=== PATIENT | male | born 1935 | race Caucasian/White ===

== ENCOUNTER 2020-01-06 05:44 | Day surgery (SDC) | payer MEDICARE ==
[~2020-01-06] VITALS: Ht 167.6 cm; Wt 86.2 kg
[~2020-01-06 05:44] MED LIST: ACET-2743 PO; ASPI-555 PO; ATOR40TA69 PO; CARV25TA PO; CETI10CA5 PO; GLUC-268 PO; HYDR-3894 PO; L.AC1CAP6 PO; LEVO75TA10 PO; LUTE1CAP5 PO; MV-M1TAB55 PO; OMEG-135 PO; POTA99TA21 PO; PYRI PO; PYRI60TA2 PO; RANI-662 PO; SOLI5 PO; VITA1CAP PO; XALA2.5OS OU; magnesium PO
[2020-01-06] MEDS ORDERED: SODIUM CHLORIDE 0.9% 1000ML 1,000 ML IV ONE (06:17)
[2020-01-06] MEDS ORDERED: PROPOFOL 10 MG/ML 20ML VIAL IV ONE ×2 (06:37)
[2020-01-06] MEDS ORDERED: LIDOCAINE HCL 1% 20 ML VIAL ONE (06:37)
[2020-01-06] MEDS ORDERED: GLYCOPYRROLATE 0.2 MG/ML 5 ML VIAL ONE (06:38)
[2020-01-06 06:44] VITALS: BP 145/84
[2020-01-06 07:55] VITALS: BP 118/64
[2020-01-06 08:04] VITALS: BP 119/54
[2020-01-06 08:20] VITALS: BP 142/71
== END 2020-01-06 08:25 | disposition home or self-care (01) ==
LOC: DAH 05:44 → ENDO 05:44
PROVIDERS: ATTEND Internal Medicine Gastroenterology
DX: K52.9 Noninfective gastroenteritis and colitis, unspecified (principal); K57.30 Diverticulosis of large intestine without perforation or abscess without bleeding; I10 Essential (primary) hypertension; G70.00 Myasthenia gravis without (acute) exacerbation; E78.5 Hyperlipidemia, unspecified; Z79.82 Long term (current) use of aspirin; Z79.899 Other long term (current) drug therapy; E03.9 Hypothyroidism, unspecified; M19.90 Unspecified osteoarthritis, unspecified site; Z85.46 Personal history of malignant neoplasm of prostate; Z90.89 Acquired absence of other organs; Z98.890 Other specified postprocedural states; Z90.79 Acquired absence of other genital organ(s)
CPT/HCPCS: 45380; A4215; A4221; A4222; A4223; A4606; A4615; A4663; J2704 ×2; J3490; J7030

== ENCOUNTER → 2021-03-14 | Outpatient (CLI) | payer MEDICARE ==
[~2021-03-14] MED LIST changes: -ASPI-555 PO; +ASPI-556 PO; -HYDR-3894 PO; +HYDR-4419 PO
== END | disposition home or self-care (01) ==
LOC: RAH 14:09
PROVIDERS: ATTEND Psychiatry & Neurology Neurology
DX: R41.3 Other amnesia (principal); G31.9 Degenerative disease of nervous system, unspecified
CPT/HCPCS: 70450

== ENCOUNTER → 2023-05-29 | Outpatient (CLI) | payer MEDICARE ==
[~2023-05-29] MED LIST changes: +IOHEXOL-350 75 ML VIAL IV ONE; -POTA99TA21 PO; +POTA99TA26 PO
== END | disposition home or self-care (01) ==
LOC: RAH 09:57
PROVIDERS: ATTEND Family Medicine
DX: M79.651 Pain in right thigh (principal); R79.89 Other specified abnormal findings of blood chemistry
CPT/HCPCS: 93971; Q9967

== ENCOUNTER → 2023-06-01 | Outpatient (CLI) | payer MEDICARE | END | disposition home or self-care (01) | LOC: RAH 11:10 | PROVIDERS: ATTEND Family Medicine | DX: R79.89 Other specified abnormal findings of blood chemistry (principal) | CPT/HCPCS: 71270; Q9967 ==

== ENCOUNTER → 2024-01-07 | Outpatient (CLI) | payer MEDICARE ==
[~2024-01-07] MED LIST changes: -IOHEXOL-350 75 ML VIAL IV ONE
== END | disposition home or self-care (01) ==
LOC: RAH 10:39
PROVIDERS: ATTEND Psychiatry & Neurology Neurology
DX: G31.89 Other specified degenerative diseases of nervous system (principal); R68.89 Other general symptoms and signs
CPT/HCPCS: 70450

== ENCOUNTER 2025-02-24 05:13 | Emergency (ER) | payer MEDICARE ==
[~2025-02-24] VITALS: Ht 160 cm; Wt 77.1 kg
[2025-02-24 05:24] VITALS: BP 135/69; PULSE 56; RESP 22; TEMP 98.5; O2SAT 96
--- NOTE | 2025-02-24 05:35 | ERN ---
General Chief Complaint: Back Pain or Injury Stated Complaint: LOWER BACK PAIN S/P FALL Time Seen by MD: 05:25 Source: patient, family History of Present Illness Initial Comments Patient is an 89-year-old male with adrenal insufficiency possible early Parkinson's aspiration risk myasthenia gravis and wet macular degeneration. He is also incontinent of urine and aspirates when laid flat. Patient's daughter found him and his on the floor in the bathroom. There was water on the floor. She does not know the sequence of events that led to their respective falls. They were both wearing shoes. Allergies: Coded Allergies: iodine (Unverified Allergy, Unknown, 01/05/20) latex (Unverified Allergy, Unknown, 01/05/20) Home Meds Reported Medications Latanoprost (Xalatan 0.005% Ophth Soln) 20 Drop/Ml Opsol, 1 DROP OU HS, DROP 01/05/20 Lutein/Zeaxanthin (Ocuvite Lutein 25-5 mg Softgel) 1 Each Capsule, 1 EACH PO DAILY, CAP 01/05/20 Mv-Mn/Folic Acid/Vit K/Eqeu574 (Alive Once Daily Women 50 Plus) 1 Each Tablet, 1 EACH PO NOON, TAB 01/05/20 Glucos Sul 2Kcl/MSM/Chond/C/Mn (Glucosamine Chondroitin Cap) 1 Each Capsule, 1 EACH PO NOON, CAP 01/05/20 Vitamin B Complex (B Complex) 1 Cap Capsule, 1 CAP PO DAILY, CAP 01/05/20 Potassium Gluconate (Potassium) 99 Mg Tablet, 99 MG PO NOON, TAB 01/05/20 [magnesium] No Conflict Check, 120 MG PO DAILY 01/05/20 L.acidoph & Paracasei,B.lactis (Probiotic) 1 Each Capsule, 1 EACH PO BID, CAP 01/05/20 Acetaminophen (Tylenol Extra Strength) 500 Mg Tablet, 500 MG PO DAILY, TAB 01/05/20 Cetirizine HCl (Zyrtec) 10 Mg Capsule, 10 MG PO DAILY, CAP 01/05/20 [place]-3/Dha/Epa/Fish Oil (Fish Oil EC 1,000 mg Softgel) 1 Each Capsule.dr, 1 EACH PO DAILY, CAP 01/05/20 Solifenacin Succinate (Vesicare) 5 Mg Tablet, 5 MG PO DAILY, TAB 01/05/20 Pyridostigmine [place] ([place] Timespan) 180 Mg Srtab, 180 MG PO HS, TAB.SR 01/05/20 Pyridostigmine [place] (Mestinon) 60 Mg Tablet, 60 MG PO DAILY, TAB 01/05/20 Ranitidine HCl (Zantac) 150 Mg Tablet, 150 MG PO DAILY, TAB 01/05/20 Levothyroxine Sodium (Levothyroxine Sodium) 75 Mcg Tablet, 75 MCG PO DAILY, TAB 01/05/20 Hydrocortisone (Hydrocortisone) 10 Mg Tablet, 10 MG PO HS, TAB 01/05/20 Hydrocortisone (Hydrocortisone) 10 Mg Tablet, 10 MG PO DAILY, TAB 01/05/20 Aspirin (Aspir 81) 81 Mg Tablet.dr, 81 MG PO HS, TAB 01/05/20 Atorvastatin Calcium (LIPITOR) 40 Mg Tablet, 40 MG PO HS, TAB 01/05/20 Carvedilol (Carvedilol) 25 Mg Tablet, 25 MG PO BID, TAB 01/05/20 Past Medical History Past Medical History: Dementia, Diabetes-Type II, Hypertension, Renal Disese Medical History Other: RENAL INSUFFICIENCY, MYASTHENIA GRAVIS, ABD HERNIA, adrenal insufficiency Past Surgical History: Unknown ROS Dictation Review of systems is negative except for in the HPI. Patient is no chest pain no shortness of breath no GI symptoms no decrease of consciousness able to feel all extremities and move all extremities. No fevers no chills Physical Exam General Appearance: (+) no apparent distress Orientation: (+) alert Head/Face Trauma: No Face Comment Patient does have the slow speech and flat affect facies of Parkinson's. Eye: bilateral eye normal inspection, bilateral eye PERRL, bilateral eye EOMI Ear, Nose, Throat: (+) hearing grossly normal Neck: (+) normal inspection, (+) supple, (+) full range of motion Respiratory: (+) chest non-tender, (+) lungs clear, (+) well ventilated Heart: (+) regular Vascular: (+) no edema Gastrointestinal: (+) soft, (+) non-tender, (+) bowel sound present Back Comment Patient has no back pain on palpation of his thoracolumbar spine and sacral spine nor does he have any pain in the paravertebral areas. Extremities Comment Patient has good sensation in bilateral lower legs and can flex and extend his feet. MDM I will not perform any radiological studies. The patient has no decrease in his mental status no trauma to his face or his scalp. There was no loss of consciousness. I do not think a CT scan of the patient's head or back is war ranted. Patient can not lie flat without aspirating so CT scan is not possible. Also patient's back exam is benign. I feel safe discharging him back to his home ED Course Orders Procedure Category Date Status Time Hydrocortisone 20mg PHA 02/24/25 Complete Tab (Cortef 20mg Tab 05:30 Current Medications Medications (Trade) Dose Ordered Sig/Rhona Route PRN Reason Start Time Stop Time Status Last Admin Dose Admin Hydrocortisone (corTEF 20MG TAB) 40 mg ONCE ONCE PO 02/24/25 05:30 02/24/25 05:32 DC Vital Signs Date Time Temp Pulse Resp B/P (MAP) Pulse Ox O2 Delivery O2 Flow Rate FiO2 02/24/25 05:24 98.4 56 22 135/69 96 Room Air* 0 21 02/24/25 05:14 98.1 60 16 155/77 97 Room Air 0 DX & DISP Disposition: Discharge Departure Impression: Primary Impression: Fall Condition: Stable Referrals: CHAN PALOMARES MD (PCP) ROBYN ROBLES MD Feb 24, 2025 05:35
== END 2025-02-24 05:55 | disposition home or self-care (01) ==
LOC: EDH 05:13
DX: M54.50 Low back pain, unspecified (principal); E11.9 Type 2 diabetes mellitus without complications; E27.40 Unspecified adrenocortical insufficiency; F03.90 Unspecified dementia, unspecified severity, without behavioral disturbance, psychotic disturbance, mood disturbance, and anxiety; I10 Essential (primary) hypertension; Z79.82 Long term (current) use of aspirin; Z79.890 Hormone replacement therapy; Z79.899 Other long term (current) drug therapy; Z88.8 Allergy status to other drugs, medicaments and biological substances; Z91.041 Radiographic dye allergy status; W18.39XA Other fall on same level, initial encounter; Y93.89 Activity, other specified; Y92.89 Other specified places as the place of occurrence of the external cause; Y99.8 Other external cause status
CPT/HCPCS: 99284